=== PATIENT | female | born 1965 | race Two or more races ===

== ENCOUNTER → 2024-09-15 | Outpatient (CLI) | payer MEDICAID, SELFPAY ==
--- NOTE | 2024-09-15 09:30 | XR_ITS ---
Examination: Screening digital mammography, bilateral Computer aided detection 3-D breast Tomosynthesis, bilateral Date and time of exam: September 15, 2024 0919 hours Compared to mammograms dating to December 26, 2017 Indication: Screening Technique: Nonmagnified MLO, CC views of the breasts to been obtained, reconstructed from 3-D Tomosynthesis images. R2 computer aided detection program utilized for evaluation of suspicious masses and/or abnormal calcifications. 3-D Tomosynthesis images obtained. Findings: The breasts are heterogeneously dense, which may obscure small masses Breast biopsy marker upper outer right breast with grouped microcalcifications No interval suspicious masses Impression: BI-RADS category II: Benign Findings. Recommend 1 year follow-up mammogram.
== END | disposition home or self-care (01) ==
LOC: CDIM 09:13
PROVIDERS: Referring Provider Registered Nurse Community Health; Visit Provider Registered Nurse Community Health
DX: Z12.31 Encounter for screening mammogram for malignant neoplasm of breast (principal); R92.323 Mammographic fibroglandular density, bilateral breasts
CPT/HCPCS: 77063; 77067

== ENCOUNTER → 2024-10-24 | Outpatient (CLI) | payer MEDICAID, SELFPAY ==
--- NOTE | 2024-10-24 | XR_ITS ---
EXAMINATION: Cervical spine, 5 views Technique: Cervical spine AP, AP odontoid, lateral, bilateral obliques, 5 views Exam date and time: October 24, 2024 0837 hours Comparison May 13, 2019 INDICATIONS: Neck pain beginning 4 years ago. FINDINGS: Reversal normal cervical lordosis No cervical fracture Mild to moderate degenerative disc disease C5-C6 without significant neural foraminal stenosis The odontoid is intact IMPRESSION: Mild to moderate degenerative disc disease C5-C6
== END | disposition home or self-care (01) ==
LOC: CDIM 07:56
PROVIDERS: PCP Registered Nurse Community Health; Referring Provider Nurse Practitioner; Visit Provider Nurse Practitioner
DX: M50.322 Other cervical disc degeneration at C5-C6 level (principal)
CPT/HCPCS: 72050

== ENCOUNTER → 2025-01-15 | Outpatient (CLI) | payer MEDICAID, SELFPAY ==
--- NOTE | 2025-01-15 08:39 | XR_ITS ---
Examination: Lumbar spine 3 views Technique one AP lateral coned lateral lower lumbar spine 3 views Exam date and time: January 15, 2025 0857 hrs. Comparison October 17, 2022 Indications: Lower back pain after injury beginning 4 years ago Findings: No lumbar fracture Mild to moderate disc narrowing L5-S1 Moderate lumbar spondylosis Impression: Mild to moderate degenerative disc disease L5-S1
== END | disposition home or self-care (01) ==
PROVIDERS: PCP Registered Nurse Community Health; Referring Provider Internal Medicine Rheumatology; Visit Provider Internal Medicine Rheumatology
DX: M51.379 Other intervertebral disc degeneration, lumbosacral region without mention of lumbar back pain or lower extremity pain (principal)
CPT/HCPCS: 72100

== ENCOUNTER 2025-01-20 11:03 | Outpatient (RCR) | payer MEDICAID, SELFPAY ==
--- NOTE | 2025-01-20 11:45 | PT.OIERPT ---
PT OP Initial Eval Patient Information Outpatient Physical Therapy Treatment Date: 01/20/25 Visit Reasons: Spondylosis/Cervical Medical Diagnosis: M47.812; M53.82 Treatment Dx #1: Neck Pain Start of Care: 01/20/25 Date of Onset: 4 years ago Smoking Status Smoking Status: Never smoker Initial Assessment Subjective: Pt is a 59 y/o female reports of chronic neck pain (04/16) where it started at work. Pt mentioned her provider is trying to help her with disability. Due to neck pain Pt has limitation with lifting, overhead motions, chores, self care, and returning back to work. Objective: C/S AROM: all motions are WFL with end range pain in all plane BUE AROM: all motions are WFL BUE MMTs: grossly 3+/5 Scapula MMTs: grossly 3/5 Palpation: TTP upper trape and levator scapulae Assessment: Pt demonstrate neck pain with mobility deficits leading to difficulty with ADLs. Pt will attempt physical therapy if pain persist Pt will be refer back to provider for further consultation. 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
== END 2025-02-04 23:59 | disposition home or self-care (01) ==
LOC: CPTX 11:03
PROVIDERS: PCP Nurse Practitioner; Referring Provider Nurse Practitioner; Visit Provider Nurse Practitioner
DX: M47.812 Spondylosis without myelopathy or radiculopathy, cervical region (principal); M53.82 Other specified dorsopathies, cervical region
CPT/HCPCS: 97162

== ENCOUNTER 2025-03-03 10:30 | Outpatient (RCR) | payer MEDICAID, SELFPAY ==
--- NOTE | 2025-02-12 11:57 | PT.ODAYNRPT ---
PT Outpatient Daily Note OP Daily Note Outpatient Physical Therapy Treatment Date: 02/12/25 Visit Reasons: neck pain Subjective: Pt feels pressure in the neck. Pain is about the same. Objective: Please see flow chart for list of ther ex performed Assessment: tolerate exercises with minimal pain; instructed patient to perform all exercises up to the pain Plan: Continue with PT Length of Time (minutes) of Treatment: 30 Minutes Procedure Charges Therapeutic Exercise 30 minutes: Yes
--- NOTE | 2025-02-24 11:17 | PT.ODAYNRPT ---
PT Outpatient Daily Note OP Daily Note Outpatient Physical Therapy Treatment Date: 02/24/25 Visit Reasons: neck pain Subjective: Pt's neck is about the same and continues to have burning pain throughout the shoulders. Objective: Please see flow chart for list of ther ex performed Assessment: minimal change in symptoms post PT session. Pt notice more stretching sensation in the UE with nerve flossing, however, able to complete instructed reps Plan: Continue with PT Length of Time (minutes) of Treatment: 30 Minutes Procedure Charges Therapeutic Exercise 30 minutes: Yes
--- NOTE | 2025-03-03 11:59 | PT.ODAYNRPT ---
PT Outpatient Daily Note OP Daily Note Outpatient Physical Therapy Treatment Date: 03/03/25 Visit Reasons: neck pain Subjective: Pt's neck is worsening and notice more arm pain lately. Physical therapy has helped minimal since she she started Objective: Please see flow chart for list of ther ex performed Assessment: tolerate exercises with minimal pain; minimal changes in numbness post Pt session Plan: Continue with PT Length of Time (minutes) of Treatment: 30 Minutes Procedure Charges Therapeutic Exercise 30 minutes: Yes
== END 2025-03-07 23:59 | disposition home or self-care (01) ==
LOC: CPTX 10:30
PROVIDERS: PCP Nurse Practitioner; Referring Provider Nurse Practitioner; Visit Provider Nurse Practitioner
DX: M47.812 Spondylosis without myelopathy or radiculopathy, cervical region (principal); M53.82 Other specified dorsopathies, cervical region
CPT/HCPCS: 97110

== ENCOUNTER 2025-04-01 11:00 | Outpatient (RCR) | payer MEDICAID, SELFPAY ==
--- NOTE | 2025-03-23 13:28 | PT.ODAYNRPT ---
PT Outpatient Daily Note OP Daily Note Outpatient Physical Therapy Treatment Date: 03/23/25 Visit Reasons: Neck pain Subjective: Pt reports she continues to have neck pain and feels physical therapy aggravates symptoms. Objective: Continue with pOC. Assessment: Pt demonstrates poor tolerance with light interventions assigned for c/s and t/s. Plan: Continue with pOC, assess response to treatment. Length of Time (minutes) of Treatment: 30 Minutes Procedure Charges Therapeutic Exercise 30 minutes: Yes
--- NOTE | 2025-04-01 13:25 | PT.ODAYNRPT ---
PT Outpatient Daily Note OP Daily Note Outpatient Physical Therapy Treatment Date: 04/01/25 Visit Reasons: Neck pain Subjective: No progress to report at this time, pt continues to have pain. Objective: Please see flow sheet for ther ex list. Assessment: Slow progress with interventions due to poor progress with symptoms. Plan: Continue with pOC. Length of Time (minutes) of Treatment: 30 Minutes Procedure Charges Therapeutic Exercise 30 minutes: Yes
== END 2025-04-06 23:59 | disposition home or self-care (01) ==
LOC: CPTX 11:00
PROVIDERS: PCP Nurse Practitioner; Referring Provider Nurse Practitioner; Visit Provider Nurse Practitioner
DX: M47.812 Spondylosis without myelopathy or radiculopathy, cervical region (principal); M53.82 Other specified dorsopathies, cervical region; G89.29 Other chronic pain
CPT/HCPCS: 97110

== ENCOUNTER 2025-04-22 10:53 | Outpatient (RCR) | payer MEDICAID, SELFPAY ==
--- NOTE | 2025-04-22 13:14 | PT.ODAYNRPT ---
PT Outpatient Daily Note OP Daily Note Outpatient Physical Therapy Treatment Date: 04/22/25 Visit Reasons: Neck pain Subjective: Pt reports neck pain continues to be present, mentioned that she does not notice much changes with symptoms. Objective: Please see flow sheet for ther ex list. Assessment: Pt has completed 7/8 PT visits, presents with poor activity tolerance and c/o pain with light interventions. Plan: Assess for note. Length of Time (minutes) of Treatment: 30 Minutes Procedure Charges Therapeutic Exercise 30 minutes: Yes
== END 2025-05-07 23:59 | disposition home or self-care (01) ==
LOC: CPTX 10:53
PROVIDERS: PCP Nurse Practitioner; Referring Provider Nurse Practitioner; Visit Provider Nurse Practitioner
DX: M47.812 Spondylosis without myelopathy or radiculopathy, cervical region (principal); M53.82 Other specified dorsopathies, cervical region; G89.29 Other chronic pain
CPT/HCPCS: 97110